=== PATIENT | female | born 1945 | race Caucasian/White ===

== ENCOUNTER → 2016-04-17 | Outpatient (CLI) | payer BC, MEDICARE | LOC: GMAB 18:57 | PROVIDERS: ATTEND Family Medicine | DX: M79.672 Pain in left foot (principal) ==

== ENCOUNTER → 2016-05-08 | Outpatient (CLI) | payer BC, MEDICARE ==
--- NOTE | 2016-05-08 10:27 | RAD ---
EXAM DESCRIPTION: XR ANKLE 3 OR MORE VIEWS CLINICAL HISTORY: PAIN COMPARISON: None. IMPRESSION: Three views of the right ankle show comminuted, complex spiral fracture of the right distal tibia. The fracture begins approximately 6 or 7 cm proximal to the tibial plafond. There is a vertical fracture involving the posterior distal tibia extending to the articular surface with 8-9 mm posterior displacement of the largest distal posterior fracture fragment. There is comminuted mildly displaced fracture of the medial malleolus. There is narrowing of the ankle mortise at the tibiotalar junction. No obvious distal fibular fracture is seen. CT imaging of the ankle could be useful for better evaluation of this complex distal tibia fracture. Diffuse soft tissue swelling of the ankle is seen. Small plantar enthesophyte of the calcaneus is seen. Electronically signed by: Joel Jordan MD 05/08/2016 10:25
--- NOTE | 2016-05-09 07:45 | CT ---
EXAM DESCRIPTION: CT right ankle without contrast CLINICAL HISTORY: 71 y/o F, acute by 1 fracture right distal tibia COMPARISON: None TECHNIQUE: Helical CT images through the right ankle with multiplanar reformats FINDINGS: There is a comminuted intra-articular fracture of the distal right tibia. The primary fracture planes are oblique longitudinal sagittal and coronal. There is a mildly medially displaced comminuted medial malleolar fracture. There is also a dominant fragment mildly displaced involving the posterior malleolus. There is slight anterior subluxation of the tibial shaft relative to the talar dome with joint space narrowing. Multiple areas of articular diastasis are noted in the tibial plafond measuring up to 10 mm in AP dimension. Multiple small intra-articular fragments are noted. There are small fragments anterior laterally along the anterior inferior tib-fib ligament with a donor site from the tibia. There is widening of the syndesmosis related to the anterior displacement of the tibia. The talofibular interval is normal. The coronal images show maximal transverse diastasis/articular defect in the tibial plafond medially on series 501, image 25 13 mm. Axial images show a spiral configuration of the distal tibial primary fracture plane. No definitive talar fracture. No evidence of calcaneal fracture. However, there is an incidentally visualized fracture at the 2nd TMT compartment which appears to involve the base of the 2nd metatarsal. There is also mild widening of the Lisfranc interval. This is concerning for a Lisfranc ligament injury. Small cortical irregularity is also noted at the base of the 4th metatarsal. IMPRESSION: Comminuted spiral configuration intra-articular fracture distal tibia with mildly displaced involvement of the medial and posterior malleoli Anterior tibial subluxation relative to the talus and fibula Avulsion tibial attachment anterior inferior tib-fib ligament Small fracture at the base of the 2nd metatarsal and possibly additional fracture at the base of the 4th metatarsal with mild widening of the Lisfranc interval concerning for Lisfranc ligament injury Intra-articular diastasis of the tibial plafond see above discussion Electronically signed by: Antonio Alan MD 05/09/2016 07:43
== END | disposition home or self-care (01) ==
LOC: RAD 08:36
PROVIDERS: ATTEND Orthopaedic Surgery
DX: M25.571 Pain in right ankle and joints of right foot (principal)

== ENCOUNTER → 2016-07-06 | Outpatient (CLI) | payer BC, MEDICARE | LOC: GMAB 17:12 | PROVIDERS: ATTEND Family Medicine | DX: Z79.899 Other long term (current) drug therapy (principal) ==

== ENCOUNTER → 2017-02-02 | Outpatient (CLI) | payer BC, MEDICARE | END | disposition home or self-care (01) | LOC: GMAB 10:12 | PROVIDERS: ATTEND Family Medicine | DX: R53.82 Chronic fatigue, unspecified (principal) ==

== ENCOUNTER → 2017-03-07 | Outpatient (CLI) | payer BC, MEDICARE | END | disposition home or self-care (01) | LOC: GMAB 17:10 | PROVIDERS: ATTEND Family Medicine | DX: D50.8 Other iron deficiency anemias (principal) ==

== ENCOUNTER → 2017-05-23 | Outpatient (CLI) | payer BC, MEDICARE | LOC: GMAB 14:52 | PROVIDERS: ATTEND Family Medicine | DX: L03.032 Cellulitis of left toe (principal) ==

== ENCOUNTER → 2017-07-18 | Outpatient (CLI) | payer BC, MEDICARE | LOC: GMAB 13:23 | PROVIDERS: ATTEND Family Medicine | DX: D50.8 Other iron deficiency anemias (principal); E53.8 Deficiency of other specified B group vitamins ==

== ENCOUNTER → 2017-11-22 | Outpatient (CLI) | payer BC, MEDICARE | LOC: GMAE 10:28 | PROVIDERS: ATTEND Family Medicine | DX: D50.8 Other iron deficiency anemias (principal); E53.8 Deficiency of other specified B group vitamins ==

== ENCOUNTER → 2018-02-11 | Outpatient (CLI) | payer BC, MEDICARE | LOC: GMAE 13:37 | PROVIDERS: ATTEND Family Medicine | DX: I10 Essential (primary) hypertension (principal) ==

== ENCOUNTER → 2018-05-23 | Outpatient (CLI) | payer BC, MEDICARE | LOC: GMAE 14:19 | PROVIDERS: ATTEND Family Medicine | DX: D50.8 Other iron deficiency anemias (principal); E53.8 Deficiency of other specified B group vitamins ==

== ENCOUNTER → 2018-07-18 | Outpatient (CLI) | payer BC, MEDICARE | LOC: GMAE 14:16 | PROVIDERS: ATTEND Family Medicine | DX: D50.8 Other iron deficiency anemias (principal); E53.8 Deficiency of other specified B group vitamins; I10 Essential (primary) hypertension ==

== ENCOUNTER → 2019-01-15 | Outpatient (CLI) | payer BC, MEDICARE | LOC: GMAE 12:44 | PROVIDERS: ATTEND Family Medicine | DX: D50.8 Other iron deficiency anemias (principal) ==

== ENCOUNTER → 2019-03-11 | Outpatient (CLI) | payer BC, MEDICARE | LOC: GMAE 10:19 | PROVIDERS: ATTEND Family Medicine | DX: I10 Essential (primary) hypertension (principal) ==

== ENCOUNTER → 2019-08-21 | Outpatient (CLI) | payer BC, MEDICARE ==
--- NOTE | 2019-08-21 16:11 | MRI ---
EXAM DESCRIPTION: Lumbar Spine w/o Contrast : Magnetic Resonance Imaging. CLINICAL HISTORY: radiculopathy COMPARISON: CT scan of the chest without contrast to evaluate the thoracic spine and ribs, August 2015. TECHNIQUE: Multiplanar, multiple standard sequences, non contrast MRI, lumbar spine. FINDINGS: L5-S1: The disc is well visualized on axial T2 series 501, image 3. Disc space is decreased with minimal desiccation and posterior midline bulge. L5 vertebra is transitional and partially sacralized, with articulation of the right transverse process with the right sacral ala and right iliac bone. No significant canal narrowing. Foramina are sacralized. Degenerative hypertrophy of the bilateral facet joints left more than right but no significant ligament thickening. L4-L5: Moderate to severe disc space loss mostly outer margins. Anterior disc osteophyte bulge. Posterior small broad-based disc osteophyte bulge. Bilateral degenerative hypertrophy of the canal elements (facets and ligaments). AP canal diameter 12 mm. Advanced endplate reactive changes. Moderate to severe narrowing of the right foramen and mild to moderate narrowing of the left foramen. L3-L4: Disc desiccation with advanced endplate reactive changes and multiple Schmorl's nodes superior and inferior. Grade 1 anterolisthesis 5 mm. Questionable deformity left L4 pars interarticularis. Moderate hypertrophy of the canal elements. Significant transverse canal narrowing. AP canal diameter 9 mm. Mild to moderate right foraminal narrowing and left foraminal stenosis. L2-L3: Disc desiccation and minimal disc space loss. Posterior broad-based bulge more to the left of midline. Degenerative hypertrophy of the canal elements more on the left. Mild narrowing of the canal. Left subarticular recess stenosis. Mild to moderate narrowing of the left foramen. L1-L2: Disc desiccation minimal disc space loss with anterior bulging. Minimal degenerative hypertrophy of the canal elements. Left more than right. Canal is patent. Mild to moderate narrowing of the left foramen. T12-L1: Disc desiccation with anterior disc bulge. Conus terminates just above the disc space. Minimal degenerative hypertrophy of the canal elements. Bilateral foramina are patent.. Lumbar dextroscoliosis with lower thoracic compensatory levoscoliosis. Paravertebral soft tissues suspect mild left renal cortical atrophy. Paraspinal muscle atrophy.. Distal cord normal signal and caliber. Otherwise normal marrow signal in the remaining vertebral bodies and the posterior elements. Vertebral bodies are not compressed at any level. IMPRESSION: 1. Multilevel disc desiccation, spondylosis, facet joint degenerative hypertrophy and thickening of the posterior flavum ligaments. 2. Transitional lumbosacral vertebra interpreted to be a sacralized L5 vertebra. This can be correlated with radiographs of the thoracic and lumbar spine. No canal or foraminal stenosis at L5-S1. Lumbosacral anomalies can be a cause of abnormal biomechanics and a source of low back pain. 3. Grade 1 anterolisthesis L3-L4. Mild central canal stenosis. Left foraminal stenosis. Correlate for left L3 radiculopathy. 4. Left subarticular recess stenosis at L2-L3. Possible compromise left L3 nerve. Electronically signed by: Rao Jane MD 08/21/2019 4:10 PM CDT
== END ==
LOC: MRI 14:00
PROVIDERS: ATTEND Psychiatry & Neurology Neurology
DX: M51.16 Intervertebral disc disorders with radiculopathy, lumbar region (principal); M51.86 Other intervertebral disc disorders, lumbar region; M47.896 Other spondylosis, lumbar region; M46.96 Unspecified inflammatory spondylopathy, lumbar region; M24.28 Disorder of ligament, vertebrae; M53.87 Other specified dorsopathies, lumbosacral region; M43.16 Spondylolisthesis, lumbar region; M48.061 Spinal stenosis, lumbar region without neurogenic claudication

== ENCOUNTER → 2019-09-29 | Outpatient (CLI) | payer BC, MEDICARE | LOC: GMAE 11:14 | PROVIDERS: ATTEND Family Medicine | DX: D50.8 Other iron deficiency anemias (principal) ==

== ENCOUNTER → 2019-12-15 | Outpatient (CLI) | payer BC, MEDICARE | LOC: GMAE 14:18 | PROVIDERS: ATTEND Family Medicine | DX: R30.0 Dysuria (principal) ==

== ENCOUNTER → 2020-04-02 | Outpatient (CLI) | payer BC, MEDICARE | LOC: GMAE 10:27 | PROVIDERS: ATTEND Family Medicine | DX: I10 Essential (primary) hypertension (principal); E78.2 Mixed hyperlipidemia ==